=== PATIENT | female | born 1955 | race Caucasian/White ===

== ENCOUNTER 2017-02-05 17:19 | Inpatient (IN) | payer OTHER ==
[~2017-02-05] VITALS: Ht 162.6 cm; Wt 83.0 kg
[~2017-02-05 17:19] MED LIST: ALPR-411 PO; AMT50 PO; AMTUNK PO; ASPCH81 PO; CLX20 PO; DICL-201 PO; DRVUNK PO; FLX10 PO; IBUP-1428 PO; LSX20 PO; PRZCUNK PO; SIMV20TA2 PO
[2017-02-05 19:49] VITALS: BP 119/76; PULSE 67; TEMP 36.8; O2SAT 99; Ht 162.6 cm; Wt 83.0 kg
[2017-02-05] MEDS ORDERED: NITROGLYCERIN 0.4 MG SL PER TAB CHARGE SL PRN (20:00)
[2017-02-05] MEDS ORDERED: ONDANSETRON INJ 2 MG/ML 2 ML VIAL IV PRN (20:00)
[2017-02-05] MEDS ORDERED: MAGNESIUM HYDROXIDE SUSP 30 ML UDC PO PRN (20:00)
[2017-02-05] MEDS ORDERED: MoRPHine SULFATE 2 MG/ML CARP IV PRN (20:00)
[2017-02-05] MEDS ORDERED: ALUMINUM/MAGNESIUM/SIMETH (MAALOX MAX) 30 ML UDC PO PRN (20:00)
--- NOTE | 2017-02-05 20:15 | History and Physical ---
History & Physical Date & Time of Service: Feb 05, 2017 at 20:01 Chief Complaint: Chest Heaviness, Aaa Primary Care Physician: No Doctor, Assigned History of Present Illness Source: patient Magalie is a 61 yo F with known bicuspid aortic valve, pt of Dr Mason, as well as hx of FL in 2006 (cath did not reveal obstructing disease and she did not have any interventions done), h/o gastric bypass surgery, & anxiety who presents as a direct admission from [facility]. She presented there yesterday with back pain since Monday (x 2 days), which she described as radiating to the back between her shoulders. This was associated with nausea and vomiting. The pain started after cleaning up her house. She was admitted for observation and had negative troponins x 2. She had a CT angio of the chest which ruled out PE and dissection. CXR was unremarkable. Echo was ordered and Cardiology was consulted. 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 She still reports chest pressure on the left side of her chest, which does not radiate. Past Medical/Surgical History PMHx: Aortic anuerysm Anxiety Hx bicuspid aortic valve PSHx: Gastric bypass 5y ago Hysterectomy Family History No pertinent FHx Social History Smoking Status: Never Smoker Alcohol Use: none Drug Use: none Marital Status: Housing status: lives with family Allergies Coded Allergies: No Known Allergies (Unverified , 02/05/17) Home Medications Scheduled Amitriptyline Hcl (Elavil), 50 MG PO HS Aspirin (Aspirin Tab-Chewable *), 81 MG PO DAILY Bupropion (Wellbutrin-Xl), 300 MG PO DAILY Buspirone Hcl (Buspar), 15 MG PO BID Docusate Sodium (Docqlace), PO BID Omeprazole (Prilosec), 20 MG PO BID Oxycodone/Acetaminophen 10MG/325MG (Percocet 10MG/325MG), 1 TAB PO TID Polyethylene Glycol 3350 (Miralax), DAILY Scheduled PRN Alprazolam (Xanax), 0.5 MG PO TID PRN for Anxiety/Insomnia Review of Systems See HPI for pertinent positives & negatives. A total of 10 systems reviewed and were otherwise negative. Physical Exam Vital Signs VS PER EMR General Appearance: WD/WN, no apparent distress Head: normocephalic, atraumatic Eyes: normal inspection, PERRL ENT: hearing grossly normal Neck: supple, no JVD Respiratory/Chest: lungs clear, normal breath sounds, no respiratory distress Cardiovascular: regular rate, rhythm, no murmur, normal peripheral pulses Abdomen/GI: non tender, soft Back: no CVA tenderness, no muscle spasm Extremities/Musculoskelatal: no calf tenderness, no pedal edema Neurologic/Psych: alert, normal mood/affect Skin: warm/dry, no rash Diagnostics Laboratory Results LABS FROM [facility] [place]: Hb 13.3, MCV 90 Cr 0.80 K+ 3.7 TROP <0.015 Diagnostic Radiology REPORT OF CT ANGIOGRAM 02/04/17: - Negative for PE - Negative for aortic dissection - Borderline dilatation / aneurysm ascending aortic arch (3.9cm) - Clear lung zones CXR - Negative for acute lung disease EKG EKG FEB 04: Sinus rhythm, 94bpm, no ST elevation. Nondiagnostic inferior Q waves EKG FEB 05: Sinus rhythm, 67bpm, no ST elevation. Persistent inferior Q waves. Impression Assessment and Plan 61 yo F with known cardiac hx (bicuspid aortic valve, previous FL) who presents with chest pain x 3 days. Chest pain - Troponins trended at [place], were all negative - Will consult Dr Mason of Cardiology - Nitropaste / Morphine if persistent pain overnight - Continue Aspirin 81mg - Continue Lopressor 25mg BID - Continue Lipitor 80mg qHS Bicuspid Aortic Valve - Will obtain echo Anxiety - Continue Wellbutrin and Alprazolam 0.5mg TID - Continue Amitryptyline Chronic back pain - Continue Oxycodone IR 20mg q6h PRN CODE STATUS: FULL DISPO: ADMITTED TO TELE DIET: NPO after midnight VTE: Lovenox Resident Physician Supervision Note: I was present with Dr. Cronin during the history and exam. I discussed the case with the resident and agree with the findings and plan as documented in the note. 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 OE AAO x 3 S1,2 R CTAB NT, ND No CCE P: Treat symptomatically - monitor on tele - further workup to discretion of her t rail turner Documented By: Jeffrey Gillespie VTE Prophylaxis VTE Risk Assessment Done? Y/N: Yes Risk Level: Moderate Resident Tracking Resident Involvement: Resident Care Provided Care Provided: Adult Hospital Medicine
[2017-02-05] MEDS ORDERED: ALPR-411 PO (20:39)
[2017-02-05] MEDS ORDERED: BUSP15TA70 PO (20:39)
[2017-02-05] MEDS ORDERED: DOCU100C31 PO (20:39)
[2017-02-05] MEDS ORDERED: AMT50 PO (20:39)
[2017-02-05] MEDS ORDERED: PRLSR20 PO (20:39)
[2017-02-05] MEDS ORDERED: BUPRTAB51 PO (20:39)
[2017-02-05] MEDS ORDERED: OXYC-106 PO (20:45)
[2017-02-05] MEDS ORDERED: POLY335025 (20:45)
[2017-02-05] MEDS ORDERED: DOCU100C22 PO (20:45)
[2017-02-05] MEDS ORDERED: ALPRAZOLAM 0.5 MG TAB PO PRN (21:15)
[2017-02-05] MEDS: NITROGLYCERIN OINT 2% 1GM PACKET EXT SCH (21:32)
[2017-02-05] MEDS: ACETAMINOPHEN 325 MG TAB PO PRN (21:40)
[2017-02-05] MEDS ORDERED: OXYCODONE/ACETAMINOPHEN 10/325MG TAB PO STA (22:53)
[2017-02-05] MEDS: OXYCODONE/ACETAMINOPHEN 10/325MG TAB PO SCH (22:59)
[2017-02-05 23:15] VITALS: BP 104/66; PULSE 72; TEMP 36.6; O2SAT 94
[2017-02-06] VITALS (9 sets, daily range): BP systolic 99–105; BP diastolic 63–66; PULSE 68–76; TEMP 36.6–36.8; O2SAT 95–99
[2017-02-06] MEDS: NITROGLYCERIN OINT 2% 1GM PACKET EXT SCH ×3 (03:00→15:00)
[2017-02-06] MEDS: ACETAMINOPHEN 325 MG TAB PO PRN ×2 (05:43→15:30)
[2017-02-06 06:11] LABS: MEAN CELL VOLUME 92.3 fL (80-100); MEAN CORPUSCULAR HEMOGLOBIN 30.3 pg (25-34); MEAN CORPUSCULAR HGB CONC 32.9 g/dl (32-36); MEAN PLATELET VOLUME 10.5 fL (7.4-10.4); PLATELET COUNT 159 K/uL (130-400); RED BLOOD COUNT 3.79 M/uL (4.2-5.4); WHITE BLOOD COUNT 4.05 K/uL (4.8-10.8)
[2017-02-06 06:46] LABS: ALT/SGPT 18 U/L (12-78); BLOOD UREA NITROGEN 11 mg/dl (7-18); BUN/CREATININE RATIO 12.6 (10-20); CALCIUM 7.7 mg/dl (8.5-10.1); CARBON DIOXIDE 29 mmol/L (21-32); CHLORIDE 110 mmol/L (98-107); CREATININE 0.89 mg/dl (0.60-1.20); GLUCOSE 97 mg/dl (70-99); POTASSIUM 3.7 mmol/L (3.5-5.1); SODIUM 146 mmol/L (136-145)
[2017-02-06 06:51] LABS: ALB/GLOB RATIO 1.2 (0.9-2); ALKALINE PHOSPHATASE 38 U/L (45-117); AST/SGOT 13 U/L (15-37)
[2017-02-06 07:17] LABS: BASO % 0.5 %; BASO ABS # 0.02 K/uL (0-0.2); COMPLETE YES; EOS % 4.4 %; IG% 0.2 %; LYMPH % 50.1 %; LYMPH ABS # 2.03 K/uL (1.2-3.4); MONO % 6.9 %; NEUT % 37.9 %
[2017-02-06] MEDS: OXYCODONE/ACETAMINOPHEN 10/325MG TAB PO SCH ×2 (08:28→15:36)
--- NOTE | 2017-02-06 08:49 | Clinical Documentation Query ---
NEIL Lloyd : CLINICAL DOCUMENTATION QUERY Patient is a 61 year old female accepted in transfer from [facility] for "chest pain". History includes bicuspid aortic valve, [place], obesity. Pain started with activity, radiated to back and shoulder and was associated with nausea and vomiting. Radiology and chemistries negative to date. Undergoing stress test this a.m. 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 Thank you. In your clinical opinion is this patient being managed for: ( ) Angina ( ) Other explanation of clinical findings (Please Explain) ( ) Unable to determine (Please Define) ( ) Need to Discuss ( ) Not Agree The medical record reflects the following clinical findings, treatment, and risk factors. Clinical Indicators: As above Treatment: Admission, receipt in transfer for "chest pain", ASA, Lovenox, Nitro ointment, cardiology consultation, stress test. Risk Factors: Age, obesity, prior WA Please clarify and document your clinical opinion in the progress notes and discharge summary. Terms such as "probable", "suspected", "likely", "questionable", "possible", or "still to be ruled out" are acceptable. IF IN AGREEMENT, YOU MUST DOCUMENT ABOVE DIAGNOSTIC STATEMENT IN DAILY PROGRESS NOTES AND DISCHARGE SUMMARY. This document is not part of the patient's record. Thank You, Merlin Roca, CRISTIANO [phone]
[2017-02-06] MEDS ORDERED: PANTOprazole SOD 40 MG TAB PO SCH (09:00)
[2017-02-06] MEDS ORDERED: POLYETHYLENE (MIRALAX) 17 GM PACK PO SCH (09:00)
[2017-02-06] MEDS ORDERED: ENOXAPARIN 40 MG/0.4 ML SYR SC SCH (09:00)
[2017-02-06] MEDS ORDERED: DOCUSATE SODIUM 100 MG CAP PO SCH (09:00)
[2017-02-06] MEDS ORDERED: ASPIRIN 81 MG ECTAB PO SCH (09:00)
[2017-02-06] MEDS ORDERED: BuPROPion XL 300 MG TABCR PO SCH (09:00)
[2017-02-06] MEDS ORDERED: BusPIRone 15 MG TAB PO SCH (09:00)
--- NOTE | 2017-02-06 10:46 | ECHOCARDIOGRAM REPORT ---
*NOTICE TO RECEIVING [employer] This information is strictly Confidential and protected under [place] law. [place] law prohibits you from making any further disclosure of this information unless further disclosure is expressly permitted by the written consent of the person to whom it pertains or is authorized by law. A general authorization for the release of medical or other information is not sufficient for this purpose. Hospital accepts no responsibility if the information is made available to any other person, INCLUDING THE PATIENT. Interpretation Summary * Name: NATIVIDAD ISBELL Study Date: 02/06/2017 07:11 AM BP: 102/64 mmHg * Patient Location: C.2T\S\S229\S\2 HR: 68 * : 1955 (M/d/yyyy) Gender: Female Height: 64 in * Age: 61 yrs Ethnicity: CA Weight: 182 lb * Ordering Physician: Jaz Cronin * Referring Physician: No Doctor, Assigned * Performed By: Candy Sesay RDCS * * Reason For Study: BICUSPID AO VALVE * BSA: 1.9 m2 * -- Conclusions -- * Left ventricular systolic function is normal. * Diastolic dysfunction, Grade II, consistent with elevated left atrial pressure. * Mild aortic regurgitation. * A bicuspid aortic valve cannot be excluded. * Right ventricular systolic pressure is normal. Procedure Details * A complete two-dimensional transthoracic echocardiogram was performed (2D, M-mode, Doppler and color flow Doppler). Left Ventricle * The left ventricle is normal in size. * There is normal left ventricular wall thickness. * Left ventricular systolic function is normal. * Ejection Fraction = 55-60%. * Diastolic dysfunction, Grade II, consistent with elevated left atrial pressure. * The left ventricular wall motion is normal. Right Ventricle * The right ventricle is normal in size and function. * The right ventricular systolic function is normal as assessed by tricuspid annular plane systolic excursion (TAPSE) (normal >1.5 cm). Atria * The left atrial size is normal. * Right atrial size is normal. Mitral Valve * The mitral valve anatomy is normal. * There is trace mitral regurgitation. Tricuspid Valve * The tricuspid valve anatomy is normal. * There is trace tricuspid regurgitation. * Right ventricular systolic pressure is normal. Aortic Valve * A bicuspid aortic valve cannot be excluded. * Mild aortic regurgitation. Pericardium/Pleural * There is no pericardial effusion. MMode 2D Measurements and Calculations IVSd 0.92 cm IVSs 1.4 cm LVIDd 4.5 cm LVIDs 3.2 cm LVPWd 0.68 cm LVPWs 1.7 cm IVS/LVPW 1.4 FS 30.3 % EDV(Teich) 94.9 ml ESV(Teich) 40.1 ml EF(Teich) 57.7 % EDV(cubed) 94.2 ml ESV(cubed) 31.9 ml EF(cubed) 66.1 % % IVS thick 55.6 % % LVPW thick 143.0 % LV mass(C)d 116.2 grams LV mass(C)dI 61.8 grams/m\S\2 LV mass(C)s 178.4 grams LV mass(C)sI 94.9 grams/m\S\2 SV(Teich) 54.8 ml SI(Teich) 29.2 ml/m\S\2 SV(cubed) 62.3 ml SI(cubed) 33.1 ml/m\S\2 LVAd ap4 27.2 cm\S\2 LVLd ap4 7.8 cm EDV(MOD-sp4) 79.9 ml LVAs ap4 15.8 cm\S\2 LVLs ap4 6.3 cm ESV(MOD-sp4) 34.7 ml EF(MOD-sp4) 56.6 % LVAd ap2 30.5 cm\S\2 LVLd ap2 8.1 cm EDV(MOD-sp2) 101.0 ml LVAs ap2 17.3 cm\S\2 LVLs ap2 6.5 cm ESV(MOD-sp2) 40.9 ml EF(MOD-sp2) 59.5 % SV(MOD-sp4) 45.2 ml SI(MOD-sp4) 24.1 ml/m\S\2 SV(MOD-sp2) 60.1 ml SI(MOD-sp2) 32.0 ml/m\S\2 Doppler Measurements and Calculations MV E max kristine 62.1 cm/sec MV A max kristine 49.0 cm/sec MV E/A 1.3 MV dec time 0.24 sec Ao V2 max 135.5 cm/sec Ao max PG 7.3 mmHg Ao max PG (full) 5.1 mmHg AI max kristine 292.6 cm/sec AI max PG 34.2 mmHg AI dec slope 170.7 cm/sec\S\2 AI P1/2t 502.1 msec LV V1 max PG 2.2 mmHg LV V1 max 74.7 cm/sec TR max kristine 181.4 cm/sec
--- NOTE | 2017-02-06 12:07 | Cardiology Consultation ---
Cardiology Consultation Date of Consultation: Feb 06, 2017. Requesting Physician: Jona Reason for Consultation: Chest pain Pt evaluation today including: conversation w/ patient, physical exam, chart review, lab review, review of studies, conversation w/ attending History of Present Illness The patient is a 61-year-old woman without a known history of coronary artery disease who presented to an outside facility with symptoms of chest discomfort. Patient states that the symptoms started at rest and initially involved some back pain as well. She had some discomfort between her shoulder blades and some mild discomfort in her arms. The symptoms waxed and waned in severity. The patient was able to rest but awoke the next morning with persistent symptoms. She had them for an extended period but eventually presented to an outside facility for evaluation. There did not appear to be any associated breathing difficulty. She did not have any pleuritic symptoms. The chest discomfort was not positional in nature. There initially was some sense of dizziness and an element of tachycardia, but this resolved. Patient has had chest pain symptoms in the past that were reportedly associated with a myocardial infarction. She states that her symptoms at that time were more severe but fairly similar in nature. At the time of this interview the patient continues to have which she describes as a chest heaviness. This has been present unabated for several days at this point. In general she is an active individual who does not engage in routine exercise. She is able to perform routine activity without limiting symptoms of chest discomfort or dyspnea. She has rare dizziness. She has a sense of palpitation and tachycardia on occasion. This is often associated with symptoms of anxiety. She does donate plasma regularly and did know on 1 occasion she was turned away as her heart rate was slightly elevated. He has not had any syncope. Past Medical/Surgical History Bicuspid aortic valve Aortic root dilation Gastroesophageal reflux Depression Hyperlipidemia Obesity status post gastric bypass Obstructive sleep apnea Reported history of myocardial infarction in 2006. Coronary angiography reportedly performed at that time did not demonstrate any obstructive lesions or need for intervention. Surgical history Hysterectomy Gastric bypass Family History There is a family history of diabetes mellitus Social History Smoking Status: Never Smoker History of Alcohol Use: No Review of Systems Constitutional: + see HPI Respiratory: + see HPI Abdomen: + see HPI Female : + see HPI Neurologic: + see HPI Heme: + see HPI Endo: + see HPI Skin: + see HPI She denies symptoms of significant stomach upset. She has not report frequent indigestion or eructation. She has not had any recent diarrhea. She denies any recent nausea. All Other Systems: Reviewed and Negative Allergies Coded Allergies: No Known Allergies (Unverified , 02/05/17) Medications Current Inpatient Medications Medications (Trade) Dose Ordered Sig/Angella Route Start Time Stop Time Status Last Admin Dose Admin Enoxaparin Sodium (Lovenox Inj) 40 mg Q24H SC 02/06/17 09:00 03/08/17 08:59 02/06/17 08:29 40 MG Acetaminophen (Tylenol Tab) 650 mg Q4H PRN PO 02/05/17 20:00 03/07/17 19:59 02/06/17 05:43 650 MG Al Hydrox/Mg Hydrox/Simethicone (Maalox Max Susp) 15 ml Q4H PRN PO 02/05/17 20:00 03/07/17 19:59 Magnesium Hydroxide (Milk Of Magnesia Susp) 30 ml Q12H PRN PO 02/05/17 20:00 03/07/17 19:59 Ondansetron HCl (Zofran Inj) 4 mg Q6H PRN IV 02/05/17 20:00 03/07/17 19:59 Nitroglycerin (Nitrostat Tab) 0.4 mg UD PRN SL 02/05/17 20:00 03/07/17 19:59 Nitroglycerin (Nitroglycerin 2% Oint) 1 inch Q6H EXT 02/05/17 21:00 03/07/17 20:59 02/06/17 08:31 1 INCH Morphine Sulfate (MoRPHine SULFATE INJ) 2 mg Q30M PRN IV 02/05/17 20:00 02/19/17 19:59 Alprazolam (Xanax Tab) 0.5 mg TID PRN PO 02/05/17 21:15 03/07/17 21:14 02/05/17 22:58 0.5 MG Amitriptyline HCl (Elavil Tab) 25 mg HS PO 02/06/17 21:00 03/08/17 20:59 Aspirin (Ecotrin Tab) 81 mg DAILY PO 02/06/17 09:00 03/08/17 08:59 02/06/17 08:29 81 MG Bupropion HCl (Wellbutrin-Xl Tab) 300 mg DAILY PO 02/06/17 09:00 03/08/17 08:59 02/06/17 08:30 300 MG Buspirone HCl (BusPAR TAB) 15 mg BID PO 02/06/17 09:00 03/08/17 08:59 02/05/17 23:00 15 MG Docusate Sodium (coLACE CAP) 100 mg BID PO 02/06/17 09:00 03/08/17 08:59 02/06/17 08:30 100 MG Oxycodone/ Acetaminophen (Percocet 10-325MG Tab) 1 tab TID PO 02/06/17 09:00 02/20/17 08:59 02/06/17 08:28 1 TAB Polyethylene (Miralax Powder Packet) 17 gm DAILY PO 02/06/17 09:00 03/08/17 08:59 02/05/17 23:00 17 GM Pantoprazole Sodium (Protonix Tab) 40 mg BID PO 02/06/17 09:00 03/08/17 08:59 02/06/17 08:30 40 MG Physical Exam Vital Signs Past 12 Hours Date Time Temp Pulse Resp B/P (MAP) Pulse Ox O2 Delivery O2 Flow Rate FiO2 02/06/17 11:52 36.8 76 18 105/66 (79) 95 02/06/17 07:25 98 Room Air 02/06/17 04:35 99 Room Air 02/06/17 04:00 36.6 68 17 102/64 (77) 96 Room Air 02/06/17 00:00 99 Room Air She is alert and oriented x3. Mood affect appear normal. She answered all questions appropriately. HEENT: Sclerae are anicteric. Pupils are equal and reactive to light and accommodation. Extraocular movements were intact. Neuro: Cranial nerves intact Neck: Examination of the submandibular region did not reveal any significant lymphadenopathy. Carotids are palpable bilaterally and free of bruits on auscultation. There was no evidence of jugular venous distention. The thyroid was not enlarged. Lungs: Lungs are clear to auscultation bilaterally. There are no rales wheezes or rhonchi. She has normal respiratory effort without use of accessory muscles. There is normal pulmonary excursion. Cardiac: The rhythm was regular. S1 and S2 were normal. There are no murmurs on examination. The PMI was not markedly displaced on palpation. Abdomen: The abdomen was soft and nontender. Extremities: Patient has bilateral radial pulses that are equal in intensity. There is no evidence cyanosis or clubbing. There was no evidence of significant peripheral edema bilaterally. Skin: There are no rashes noted on examination today. Data Laboratory Results: Last 24 Hours Test 02/05/17 20:45 02/06/17 05:29 Hepatitis C Antibody Screen NEG White Blood Count 4.05 K/uL Red Blood Count 3.79 M/uL Hemoglobin 11.5 g/dL Hematocrit 35.0 % Mean Corpuscular Volume 92.3 fL Mean Corpuscular Hemoglobin 30.3 pg Mean Corpuscular Hemoglobin Concent 32.9 g/dl Platelet Count 159 K/uL Mean Platelet Volume 10.5 fL Neutrophils (%) (Auto) 37.9 % Lymphocytes (%) (Auto) 50.1 % Monocytes (%) (Auto) 6.9 % Eosinophils (%) (Auto) 4.4 % Basophils (%) (Auto) 0.5 % Neutrophils # (Auto) 1.53 K/uL Lymphocytes # (Auto) 2.03 K/uL Monocytes # (Auto) 0.28 K/uL Eosinophils # (Auto) 0.18 K/uL Basophils # (Auto) 0.02 K/uL RDW Standard Deviation 44.3 fL RDW Coefficient of Variation 13.1 % Immature Granulocyte % (Auto) 0.2 % Immature Granulocyte # (Auto) 0.01 K/uL Prothrombin Time 11.0 SECONDS Prothromb Time International Ratio 1.0 Sodium Level 146 mmol/L Potassium Level 3.7 mmol/L Chloride Level 110 mmol/L Carbon Dioxide Level 29 mmol/L Anion Gap 7.0 mmol/L Blood Urea Nitrogen 11 mg/dl Creatinine 0.89 mg/dl Est Creatinine Clear Calc Drug Dose 69.2 ml/min Estimated GFR () 81.1 Estimated GFR (Non- 70.0 BUN/Creatinine Ratio 12.6 Random Glucose 97 mg/dl Calcium Level 7.7 mg/dl Total Bilirubin 0.4 mg/dl Aspartate Amino Transf (AST/SGOT) 13 U/L Alanine Aminotransferase (ALT/SGPT) 18 U/L Alkaline Phosphatase 38 U/L Troponin I < 0.015 ng/ml Total Protein 4.9 gm/dl Albumin 2.7 gm/dl Globulin 2.2 gm/dl Albumin/Globulin Ratio 1.2 Imaging: Chest x-ray was reviewed. Echocardiogram did not reveal any wall motion abnormalities. Aortic valve function unchanged EKG: Normal sinus rhythm with Q-waves in lead 3 and AVF. Unchanged from prior no acute ST or T-wave changes Telemetry reviewed: No significant arrhythmias CT angiogram was performed which did not reveal any evidence of pulmonary embolus or aortic dissection Assessment & Plan 1. Chest pain: The patient has had an extended period of chest pressure and discomfort without any elevation in her cardiac biomarkers. I think it is safe to say that her current symptoms are not related to an acute coronary syndrome or coronary insufficiency. Her EKG is unchanged. Despite the persistent nature of her symptoms and echocardiogram did not reveal any wall motion abnormalities. She had normal coronary angiography in 2006. At this point I would not advocate any additional cardiac testing. Standard risk factor modification would be appropriate. 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 2. Bicuspid aortic valve: This is unchanged in function. Very mild regurgitation. Examination is normal. 3. Aortic dilation She is reported to have borderline dilation of the aorta. This is consistent with the diagnosis of bicuspid aortic valve. There is no evidence of dissection on her CT scan. This can be monitored over time.
--- NOTE | 2017-02-06 16:21 | Discharge Instructions ---
Discharge Instructions Date of Service Feb 06, 2017. Admission Reason for Admission: Chest Heaviness, Aaa Discharge Discharge Diagnosis / Problem: Chest Heaviness Discharge Goals Goal(s): Decrease discomfort, Diagnostic testing Activity Recommendations Activity Limitations: as noted below Lifting Limitations: gradually increase as tolerated Exercise/Sports Limitations: none May Resume Sexual Activity: when tolerated Shower/Bathe: no limitations Driving or Machine Use: no limitations . Instructions / Follow-Up Instructions / Follow-Up You were transferred from [facility] having been admitted for chest pain there. This visit was intended to rule out heart related issues, and cardiology was consulted. Repeat cardiac enzymes, the test that would show damage to the heart, were negative. Also, your heart rhythm strip was normal. The echo done on your heart to see the structure of your heart was found to be functioning as it should, with no signs of compromised function. Please follow up with your primary care physician in 1-2 weeks regarding your chest pressure -- other non- cardiac causes could be gastrointestinal, stress, or musculoskeletal related. Current Hospital Diet Patient's current hospital diet: AHA Diet (Heart Healthy) Discharge Diet Recommended Diet: AHA Diet (Heart Healthy) Fluid Restriction: None Procedures Procedures Performed: electrocardiogram, echocardiogram, cardiac enzymes Pending Studies Studies pending at discharge: no Medical Emergencies . Who to Call and When: Medical Emergencies: If at any time you feel your situation is an emergency, please call 911 immediately. . Non-Emergent Contact Non-Emergency issues call your: Primary Care Provider, Printing Pressman Call Non-Emergent contact if: your pain is worsening, your pain is unusual for you, your pain is concerning you, you have any medication questions . . "Provider Documentation" section prepared by Chacha Lion. . VTE Core Measure Inpt VTE Proph given/why not?: Enoxaparin (Lovenox)SQ
--- NOTE | 2017-02-06 19:31 | Discharge Summary ---
Discharge Summary Date of Service Feb 06, 2017. (Chacha Lion M.D.) Discharge Summary Admission Date: Feb 05, 2017 at 19:34 Discharge Date: Feb 06, 2017 Discharge Disposition: Home Principal Diagnosis: Chest pain Procedures: Echocardiogram, electrocardiogram. Consultations: Cardiology (Chacha Lion M.D.) Medication Reconciliation Continued Medications: Alprazolam (Xanax) 0.5 Mg Tab 0.5 MG PO TID PRN for Anxiety/Insomnia, TAB Amitriptyline Hcl (Elavil) 50 Mg Tab 50 MG PO HS, TAB Aspirin (Aspirin Tab-Chewable *) 81 Mg Chew 81 MG PO DAILY Bupropion (Wellbutrin-Xl) 300 Mg Tabcr 300 MG PO DAILY, TAB Buspirone Hcl (Buspar) 15 Mg Tab 15 MG PO BID, TAB Docusate Sodium (Docqlace) 100 Mg Cap PO BID Omeprazole (Prilosec) 20 Mg Capcr 20 MG PO BID, CAP Oxycodone/Acetaminophen 10MG/325MG (Percocet 10MG/325MG) Tab 1 TAB PO TID, TAB Polyethylene Glycol 3350 (Miralax) 1 Pow Pow DAILY Discharge Exam Review of Systems: Constitutional: No fever, No chills, No sweats Respiratory: No cough, No sputum, No wheezing Cardiovascular: + problem reported (pressure over chest still present. Chest pain is no longer present.), No orthopnea, No edema Physical Exam: General Appearance: WD/WN, no apparent distress Eyes: normal inspection, PERRL, EOMI, sclerae normal Neck: no JVD, no carotid bruits, trachea midline Respiratory/Chest: chest non-tender, lungs clear, normal breath sounds, no respiratory distress, no accessory muscle use Cardiovascular: regular rate, rhythm, no edema, no gallop, no JVD, no murmur , normal peripheral pulses Extremities: normal inspection, normal capillary refill, no pedal edema Neurologic/Psychiatric: alert, normal mood/affect Skin: normal color, warm/dry, no rash (Chacha Lion M.D.) Hospital Course 61 yo female admitted for chest pain rule out, transferred from [facility]. Chest Pain - Reported history of myocardial infarction in 2006. Coronary angiography reportedly performed at that time did not demonstrate any obstructive lesions or need for intervention. - Pt was admitted to [facility] Monday (02/04/2017) after one day of back pain between her scapulas and with associated nausea and vomiting. - Pt said that the pain began Monday evening while cleaning. She said she began to feel badly, thinking she was having a panic attack. She took her anxiety medication and went to bed. - On Monday morning the pain persisted and she decided to go to the ED. - At [place], the pt was found to have negative troponins x2, NSR on ECG without ST changes. CTA showed no signs of PE or Aortic dissection. - Pt was transferred to [facility] on 02/05/2017 for a more extensive cardio workup. Pt sees Dr. Mason for PMHx of chest pain symptoms in 2006. Pt had a normal angiography at that time in 2006, but was seen to have Q waves on ECG indicating a possible PR. ECHOs have since, including the her ECHO during her stay at [facility] all demonstrated no functional wall abnormalities. Bicuspid Aortic Valve - During admission, ECHO also demonstrated unchanged function. Very mild regurgitation. Examination is normal.-Aortic dilation: She is reported to have borderline dilation of the aorta. This is consistent with the diagnosis of bicuspid aortic valve. - There is no evidence of dissection on her CT scan. This can be monitored over time. In summary, the pt had extended period of chest pressure and discomfort without any elevation in her cardiac biomarkers. Cardio believes the discomfort is not related to coronary syndrome or coronary insufficiency. 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 Total Time Spent: Greater than 30 minutes This includes examination of the patient, discharge planning, medication reconciliation, and communication with other providers. (Chacha Lion M.D.) Resident Physician Supervision Note: I interviewed and examined the patient. Discussed with Dr. Lion and agree with findings and plan as documented in the note. Any exceptions or clarifications are listed here: None Documented By: Wilfredo Tenorio chest pain persists, d/w pt regarding negative cardiac w/u and negative cardiology consult vitals noted nad breathing unlabored, appears pleasantly anxious chest pain - noncardiac - GERD vs anxiety seems biggest remaining ddx - stable for home. PCP f/u (Wilfredo Tenorio, D.O.) Discharge Instructions Please refer to the electronic Patient Visit Report (Discharge Instructions) for additional information. (Chacha Lion M.D.) Additional Copies To Jessica Walsh MD
[2017-02-06] MEDS ORDERED: AMITRIPTYLINE HCL 25 MG TAB PO SCH (21:00)
== END 2017-02-06 18:31 | disposition home or self-care (01) | DRG 313 ==
LOC: C.2T 19:34
PROVIDERS: ADMIT Hospitalist; ATTEND Family Medicine
DX: R07.9 Chest pain, unspecified (principal); Q23.1 Congenital insufficiency of aortic valve; I25.2 Old myocardial infarction; I71.9 Aortic aneurysm of unspecified site, without rupture; G89.29 Other chronic pain; M54.9 Dorsalgia, unspecified; K21.9 Gastro-esophageal reflux disease without esophagitis; F41.9 Anxiety disorder, unspecified; F32.9 Major depressive disorder, single episode, unspecified; G47.33 Obstructive sleep apnea (adult) (pediatric); E66.9 Obesity, unspecified; Z68.32 Body mass index [BMI] 32.0-32.9, adult; Z98.84 Bariatric surgery status; Z79.82 Long term (current) use of aspirin; Z79.891 Long term (current) use of opiate analgesic; Z79.899 Other long term (current) drug therapy